=== PATIENT | female | born 1990 | race Caucasian/White ===

== ENCOUNTER 2022-07-18 18:03 | Emergency (ER) | payer BC, SELFPAY ==
[2022-07-18] VITALS (8 sets, daily range): BP systolic 91–128; BP diastolic 44–82; PULSE 62–88; RESP 18–19; TEMP 36.6–36.9; O2SAT 94–100; BMI 37.8
--- NOTE | 2022-07-18 18:29 | CT_ITS ---
PROCEDURE INFORMATION: Exam: CT Head Without Contrast Exam date and time: 07/18/2022 6:39 PM Age: 31 years old Clinical indication: Dizziness; Additional info: Dizziness, brain foggy TECHNIQUE: Imaging protocol: Computed tomography of the head without contrast. Radiation optimization: All CT scans at this facility use at least one of these dose optimization techniques: automated exposure control; mA and/or kV adjustment per patient size (includes targeted exams where dose is matched to clinical indication); or iterative reconstruction. COMPARISON: No relevant prior studies available. FINDINGS: Brain: No acute intracranial findings. No intracranial hemorrhage. No edema, swelling or mass-effect. No significant white matter disease. Streak artifacts slightly limit evaluation of the brainstem and posterior fossa. Cerebral ventricles: The ventricles are normal for age. No hydrocephalus. Paranasal sinuses: No acute findings in the visualized sinuses. No significant sinus opacification or air-fluid levels. Minimal ethmoid mucosal thickening. Mastoid air cells: Mastoids are unremarkable as visualized, no effusions. Prominent developmental pneumatization noted along the left petrous ridge. Orbital cavities: No acute intraorbital findings, as visualized. Bones/joints: No acute skull fracture. No lytic lesions. Soft tissues: There are no soft tissue masses or fluid collections. Mild bilateral palatine tonsillar hypertrophy noted, with some tiny tonsillar calcifications suggesting old healed infection. IMPRESSION: 1. No acute findings. 2. There is no CT evidence of intracranial mass, intracranial hemorrhage, or acute infarct. 3. Additional nonemergency and chronic findings as above.
[2022-07-18 18:36] LABS: Microscopic, Urine URINE MICROSCOPIC (MICROSCOPIC)
[2022-07-18 18:43] LABS: Alanine Aminotransferase 21 U/L (12-78); Albumin Level 4.5 g/dl (3.5-5.0); Albumin/Globulin Ratio 1.5 (1.1-1.8); Alkaline Phosphatase 120 U/L (38-126); Anion Gap 11.7 mEq/L (5-15); Aspartate Amino Transferase 24 U/L (14-36); Blood Urea Nitrogen 15 mg/dl (7-17); Calcium 9.5 mg/dl (8.4-10.2); Carbon Dioxide 26 mmol/L (22.0-30.0); Chloride 106 mmol/L (98-107); Creatinine Clearance Estimated 139 mL/min (50-200); Estimated Glomerular Filt Rate 85 ml/min (>60); GFR (African American) 103 ML/MIN (>60); Globulin 3.1 g/dL (1.3-3.2); Glucose 92 mg/dl (74-100); Potassium 3.7 mmoL/L (3.5-5.1); Sodium 140 mmol/L (136-145); Total Protein,Serum 7.6 g/dl (6.3-8.2)
[2022-07-18 18:48] LABS: Urine Pregnancy, HCG Qual. Negative (Negative)
[2022-07-18 18:49] LABS: Bilirubin,Total < 0.1 mg/dl (0.2-1.3)
[2022-07-18 18:50] LABS: Appearance,Urine CLEAR (Clear); Bilirubin,Urine Negative (Negative); Blood, Urine Negative (Negative); Color,Urine YELLOW (Yellow); Glucose,Urine (UA) Negative (Negative); Ketones,Urine Negative (Negative); Leukocyte Esterase,Urine Negative (Negative); Nitrate,Urine Negative (Negative); PH,Urine 6.5 (5.0-8.5); Protein,Urine Negative (Negative); Urobilinogen,Urine 0.2 EU/dl (0.2)
[2022-07-18 18:55] LABS: Basophils # 0.2 K/mm3 (0-0.2); Basophils % 1.5 % (0.1-2.0); Eosinophils # 0.6 K/mm3 (0.0-0.4); Eosinophils % 5.5 % (0.1-12.0); Hematocrit 46.2 % (37.0-47.0); Lymphocytes # 3.6 K/mm3 (0.7-4.5); Lymphocytes % 32.7 % (10-50); Mean Corpuscular HGB Conc 32.4 g/dL (31.8-35.4); Mean Corpuscular Hemoglobin 28.6 pg (27.0-31.2); Mean Corpuscular Volume 88.1 fl (81-99); Monocytes # 0.5 K/mm3 (0.1-1.0); Monocytes % 4.9 % (1.7-9.3); Neutrophils # 6.1 K/mm3 (1.8-7.8); Neutrophils % 55.4 % (37.0-80.0); Platelet Count 447 K/mm3 (142-424); Red Blood Count 5.25 M/mm3 (4.20-5.40); Red Cell Distribution Width 12.9 % (11.5-17.5); White Blood Count 11.1 K/mm3 (4.8-10.8)
[2022-07-18 19:33] LABS: Bacteria,Urine 3+ /lpf
--- NOTE | 2022-07-18 19:33 | [facility].EDGENADL ---
Discharge Plan Disposition Patient Disposition: Home, Self-Care Condition: Good Prescriptions Prescriptions: New meclizine [VertiCalm] 25 mg tablet 25 mg PO TID PRN (Reason: dizziness) Qty: 20 0RF Referrals Follow up/Referrals: Khadra Romano MD [Staff Physician] - See instructions Teddy Lindo [Primary Care Provider] - See instructions Activity Restrictions/Add. Instructions Additional Instructions/Restrictions: Antivert as needed for dizziness. Follow-up with your primary care provider, call for appointment. Follow-up with Dr. Romano for neurological evaluation. Return to the emergency department if symptoms worsening. Urine culture has been performed, results generally take 2 to 3 days. Follow-up the results of this test with your primary care provider within 2 to 3 days. Clinical Impressions Clinical Impression: Vertigo, Intermittent memory loss Discharge ED Provider: Robin Borges General Adult HPI General Chief complaint: Dizziness Stated complaint: dizzy loss of memory Time Seen by Provider: 07/18/22 19:33 Mode of Arrival: Ambulatory Source of Information: Patient Limitations: No Limitations Description of Symptoms (Recalled from ER Triage Doc. by RN): Pt c/o dizziness and brain fogginess x1 week History of Present Illness HPI narrative: Patient states for the past week and a half she has had dizziness and fogginess of the brain. She describes the dizziness as a sensation of movement. It happens when she is standing up and when she looks up after looking downwards. She has a pressure/foggy feeling in her frontal area. She loses her train of thought frequently. All of the symptoms have been coming and going on a daily basis for the past 10 days or so. No recent trauma. She says that she did have COVID about 3 to 4 weeks ago, also had it back in November. She is not currently having any URI symptoms or fever, no urinary symptoms, no vomiting or diarrhea. No numbness or weakness of the extremities. No loss of vision or change in vision. No numbness or weakness of the extremities. She has been able to work and ambulate. No new medications. She is on propylthiouracil and venlafaxine. States that she called her PCP to make an appointment for Sunday, but was told to come to the emergency department. Related Data Previous Rx's Medication Instructions Recorded meclizine 25 mg tablet (VertiCalm) 25 mg PO TID PRN dizziness #20 tabs 07/18/22 Allergies Allergy/AdvReac Type Severity Reaction Status Date / Time No Known Allergies Allergy Unverified 10/08/18 12:14 PFSH PFSH Social History Smoking Status: Never smoker alcohol intake: current substance use type: denies use current occupational status: unemployed household members: family ROS Obtained: Yes All systems reviewed & no additional complaints except as documented Constitutional Constitutional: Denies fever(s), Reports headache(s) and Denies weakness Eyes Eyes: Denies change in vision ENT Ears, Nose, Mouth, and Throat: Reports disequilibrium, Reports dizziness, Reports headache(s), Denies nasal discharge, Denies post nasal drip, Denies sinus pressure, Denies sore throat and Reports vertigo Cardiovascular Cardiovascular: Denies chest pain Respiratory Respiratory: Denies shortness of breath and Denies cough Gastrointestinal Gastrointestingal: Denies abdominal pain, diarrhea or vomiting Musculoskeletal Musculoskeletal: Denies numbness Neurologic Neurologic: Reports disequilibrium, Reports dizziness, Denies focal weakness, Reports headache(s), Reports memory loss, Denies numbness, Reports vertigo and Denies weakness Physical Exam General General appearance: alert and in no apparent distress Head Head exam: atraumatic and normocephalic Eye Eye exam: Present PERRL and EOMI; Absent nystagmus ENT ENT exam: Present mucous membranes moist Neck Neck exam: Present normal inspection and trachea midline Ches
== END 2022-07-18 20:54 | disposition home or self-care (01) ==
PROVIDERS: Emergency Provider Emergency Medicine; PCP Pediatrics
DX: R42 Dizziness and giddiness (principal); R41.3 Other amnesia
CPT/HCPCS: 70450; 80053; 81001; 81025; 85025; 87086; 96365; 99284